=== PATIENT | female | born 1950 | race African-American/Black ===

== ENCOUNTER 2020-09-09 10:47 | Emergency (ER) | payer OTHER, BC ==
[2020-09-09] MEDS ORDERED: DEXAMETHASONE 4 MG TABLET (FP) PO ONE (11:16)
[2020-09-09 11:20] VITALS: BP 146/81; PULSE 113; TEMP 98.1; BMI 22.3
[2020-09-09] MEDS ORDERED: DEXAMETHASONE SOD PHOSPHATE 10 MG/1 ML VIAL ONE (11:37)
== END 2020-09-09 13:25 | disposition home or self-care (01) ==
LOC: JER 10:47
DX: R09.81 Nasal congestion (principal); J06.9 Acute upper respiratory infection, unspecified
CPT/HCPCS: 99284-25; C9803; U0003

== ENCOUNTER 2023-12-05 04:28 | Day surgery (SDC) | payer OTHER, BC ==
[2023-12-01 14:27] VITALS: BMI 24.9
[2023-12-05 08:35] VITALS: TEMP 98
[2023-12-05 09:07] VITALS: BP 140/70; PULSE 66; RESP 16
== END 2023-12-05 09:15 | disposition home or self-care (01) ==
LOC: JASU-ENDO 04:28
PROVIDERS: ATTEND Internal Medicine Gastroenterology
PROC: 0DJD8ZZ Inspection of Lower Intestinal Tract, Via Natural or Artificial Opening Endoscopic (ICD-10-PCS; principal; 2023-12-05 08:00)
DX: Z12.11 Encounter for screening for malignant neoplasm of colon (principal); K57.30 Diverticulosis of large intestine without perforation or abscess without bleeding; I10 Essential (primary) hypertension

== ENCOUNTER 2024-05-31 04:27 | Day surgery (SDC) | payer OTHER, BC ==
[2024-05-27 15:53] VITALS: BMI 25.1
[2024-05-31 08:27] VITALS: TEMP 97.5
[2024-05-31 09:43] VITALS: BP 165/82; PULSE 62; RESP 16
== END 2024-05-31 09:14 | disposition home or self-care (01) ==
LOC: JASU-ENDO 04:27
PROVIDERS: ATTEND Internal Medicine Gastroenterology
PROC: 0DB68ZX Excision of Stomach, Via Natural or Artificial Opening Endoscopic, Diagnostic (ICD-10-PCS; 2024-05-31)
PROC: 0DB98ZX Excision of Duodenum, Via Natural or Artificial Opening Endoscopic, Diagnostic (ICD-10-PCS; principal; 2024-05-31 08:00)
DX: K21.00 Gastro-esophageal reflux disease with esophagitis, without bleeding (principal); K44.9 Diaphragmatic hernia without obstruction or gangrene; K29.50 Unspecified chronic gastritis without bleeding; B96.81 Helicobacter pylori [H. pylori] as the cause of diseases classified elsewhere
CPT/HCPCS: 88305-TC; 88341-TC; 88342-TC

== ENCOUNTER 2024-07-03 16:51 | Observation (INO) | payer OTHER, BC ==
[2024-07-03 17:03] VITALS: BMI 25.7
[2024-07-03] MEDS: METOCLOPRAMIDE HCL INJECTION 10 MG/2 ML VIAL IVPUSH ONE (18:00)
[2024-07-03] MEDS: ACETAMINOPHEN 500 MG TABLET (FP) PO ONE (18:00)
[2024-07-03] MEDS: SODIUM CHLORIDE 1,000 ML IV STA (18:00)
[2024-07-03] MEDS: MECLIZINE HCL 25 MG TABLET (FP) PO ONE (18:00)
[2024-07-03] MEDS ORDERED: MECLIZINE HCL 25 MG TABLET (FP) ONE (18:04)
[2024-07-03] MEDS ORDERED: METOCLOPRAMIDE HCL INJECTION 10 MG/2 ML VIAL ONE (18:04)
[2024-07-03] MEDS ORDERED: ACETAMINOPHEN 500 MG TABLET (FP) ONE (18:06)
[2024-07-03 18:19] LABS: BASO % 0.3 % (0-2.0); EOS % 3.6 % (0-4.5); HEMATOCRIT 36.5 % (32.4-45.2); HEMOGLOBIN 11.8 GM/dL (10.7-15.3); LYMPH % 46.9 % (8-40); MCH 24.8 pg (25.7-33.7); MCHC 32.3 g/dl (32.0-36.0); MEAN CELL VOLUME 76.9 fl (80-96); MEAN PLT VOLUME 7.4 fl (7.5-11.1); MONO % 5.6 % (3.8-10.2); NEUT % 43.6 % (42.8-82.8); PLATELET COUNT 296 10^3/uL (134-434); RBC 4.75 M/mm3 (3.60-5.2); RDW 14.1 % (11.6-15.6); WHITE BLOOD COUNT 4.1 K/mm3 (4.0-10.0)
[2024-07-03 18:27] LABS: INR 0.95 (0.83-1.09); PROTHROMBIN TIME (PATIENT) 10.7 SEC (9.7-13.0)
[2024-07-03 18:42] LABS: ALBUMIN 3.5 g/dl (3.4-5.0); BLOOD UREA NITROGEN 16.7 mg/dL (7-18); CALCIUM 9.1 mg/dL (8.5-10.1); MAGNESIUM 2.1 mg/dL (1.8-2.4)
[2024-07-03 18:46] LABS: CREATININE 0.8 mg/dL (0.55-1.3)
[2024-07-03 18:47] LABS: BILIRUBIN,TOTAL 0.3 mg/dL (0.2-1)
[2024-07-03] MEDS ORDERED: MAGNESIUM 1GM/D5W - 2 GM/200 ML IVPB IVPB ONE (19:50)
[2024-07-03] MEDS: MAGNESIUM SULFATE IN WATER 2 GM/50 ML IVPB IVPB ONE (20:17)
[2024-07-03] MEDS ORDERED: ACETAMINOPHEN 325 MG TABLET (FP) PO PRN (22:26)
[2024-07-03] MEDS ORDERED: DOCUSATE SODIUM 100 MG CAPSULE (FP) PO PRN (22:26)
[2024-07-03] MEDS ORDERED: MECLIZINE HCL 25 MG TABLET (FP) PO PRN (22:31)
[2024-07-04] MEDS: ASPIRIN 81 MG CHEWABLE TABLETS PO ONE (00:30)
[2024-07-04] MEDS ORDERED: ASPIRIN 81 MG CHEWABLE TABLETS ONE (00:31)
[2024-07-04 07:30] LABS: BASO % 0.4 % (0-2.0); EOS % 4.1 % (0-4.5); HEMATOCRIT 36.9 % (32.4-45.2); HEMOGLOBIN 11.9 GM/dL (10.7-15.3); LYMPH % 57.2 % (8-40); MCH 24.9 pg (25.7-33.7); MCHC 32.2 g/dl (32.0-36.0); MEAN CELL VOLUME 77.4 fl (80-96); MONO % 6.2 % (3.8-10.2); NEUT % 32.1 % (42.8-82.8); PLATELET COUNT 298 10^3/uL (134-434); RBC 4.77 M/mm3 (3.60-5.2); WHITE BLOOD COUNT 4.6 K/mm3 (4.0-10.0)
[2024-07-04 07:57] LABS: BLOOD UREA NITROGEN 9.7 mg/dL (7-18); CALCIUM 8.6 mg/dL (8.5-10.1)
[2024-07-04 07:58] LABS: MAGNESIUM 2.1 mg/dL (1.8-2.4)
[2024-07-04 08:01] LABS: CREATININE 0.7 mg/dL (0.55-1.3); PHOSPHOROUS 3.6 mg/dL (2.5-4.9)
[2024-07-04] MEDS: amLODIPine BESYLATE 2.5 MG TABLET (FP) PO SCH (10:05)
[2024-07-04] MEDS: ZOLPIDEM TARTRATE 5 MG TABLET PO PRN (22:05)
[2024-07-06 09:12] VITALS: RESP 18
[2024-07-06] MEDS: amLODIPine BESYLATE 5 MG TABLET (FP) PO SCH (09:21)
[2024-07-06 13:28] VITALS: BP 121/84; PULSE 81; TEMP 98.1
[2024-07-06] MEDS ORDERED: ATORVASTATIN CA 10 MG TABLET (FP) PO SCH (22:00)
== END 2024-07-06 18:12 | disposition home or self-care (01) ==
LOC: JER 16:51 → INTOOBSV 17:47 → JERBED 17:47 → J4W 07-04 08:52
PROVIDERS: ADMIT Internal Medicine; ATTEND Family Medicine
PROC: 3E033GC Introduction of Other Therapeutic Substance into Peripheral Vein, Percutaneous Approach (ICD-10-PCS; principal; 2024-07-03)
PROC: 3E0337Z Introduction of Electrolytic and Water Balance Substance into Peripheral Vein, Percutaneous Approach (ICD-10-PCS; 2024-07-03)
DX: R42 Dizziness and giddiness (principal); I10 Essential (primary) hypertension; R51.9 Headache, unspecified; E78.5 Hyperlipidemia, unspecified; R55 Syncope and collapse
CPT/HCPCS: 0241U-QW; 36415; 70450-TC; 70551-TC; 71046-TC-FY; 80048; 80053; 80061; 82550; 82553; 82607; 83735; 84100; 84443; 84484; 85025; 85610; 85730; 93005; 93010; 93306-TC; 93880-TC; 96361; 96365; 96375; 99291; G0378